=== PATIENT | female | born 1975 | race Caucasian/White ===

== ENCOUNTER 2018-06-13 08:44 | Emergency (ER) | payer OTHER ==
[2018-06-13 08:52] VITALS: BP 151/96; PULSE 70; TEMP 98.6; BMI 34.0
--- NOTE | 2018-06-13 09:12 | PDOC ---
History of Present Illness - General Chief Complaint: Eye Problem Stated Complaint: EYE PROLEM Time Seen by Provider: 06/13/18 08:59 History Source: Patient Exam Limitations: No Limitations - History of Present Illness Initial Comments: 06/13/18 09:14 Patient came for evaluation of redness to right eye. States 3 days ago was sneezing and had vomiting and had acute onset of redness. Denies visual changes , denies pain, denies any drainage or discharge from eye. Timing/Duration: unsure Severity: mild Associated Symptoms: reports: denies symptoms Past History - Travel Traveled outside of the country in the last 30 days: No Close contact w/someone who was outside of country & ill: No - Past Medical History Allergies/Adverse Reactions: Allergies Allergy/AdvReac Type Severity Reaction Status Date / Time No Known Allergies Allergy Verified 06/13/18 08:48 Home Medications: Ambulatory Orders NK [No Known Home Medication] 06/13/18 COPD: No - Immunization History Immunization Up to Date: Yes - Suicide/Smoking/Psychosocial Hx Smoking History: Never smoked Hx Alcohol Use: No Drug/Substance Use Hx: No Review of Systems - Review of Systems Able to Perform ROS?: Yes Is the patient limited Citizen [place] proficient: Yes Constitutional: Yes: Symptoms Reported, See HPI, Malaise. No: Fever HEENTM: Yes: See HPI. No: Symptoms Reported, Eye Pain, Blurred Vision, Tearing , Recent change in vision, Double Vision Respiratory: Yes: See HPI. No: Symptoms reported Musculoskeletal: No: Symptoms Reported All Other Systems: Reviewed and Negative *Physical Exam - Vital Signs Last Vital Signs Temp Pulse Resp BP Pulse Ox 98.6 F 70 15 151/96 99 06/13/18 08:48 06/13/18 08:48 06/13/18 08:48 06/13/18 08:48 06/13/18 08:48 - Physical Exam General Appearance: Yes: Appropriately Dressed, Apparent Distress HEENT: positive: ROSA MARIA, Normal ENT Inspection, TMs Normal, Pharynx Normal, Other (patient with 50% some conjunctival hemorrhage in the lateral aspect of her right eye, no hyphema, no corneal abrasion, no visual changes, vessel affected probable lateral aspect of mid cornea) Neck: negative: Tender Respiratory/Chest: positive: Lungs Clear, Normal Breath Sounds Integumentary: positive: Normal Color, Dry, Warm Neurologic: positive: merchant patroller II-XII NML intact, Fully Oriented, Alert, Normal Mood/ Affect, Normal Response, Motor Strength 5/5 Moderate Sedation - Procedure Monitoring Vital Signs: Procedure Monitoring Vital Signs Temperature 98.6 F 06/13/18 08:48 Pulse Rate 70 06/13/18 08:48 Respiratory Rate 15 06/13/18 08:48 Blood Pressure 151/96 06/13/18 08:48 O2 Sat by Pulse Oximetry (%) 99 06/13/18 08:48 *DC/Admit/Observation/Transfer Diagnosis at time of Disposition: Subconjunctival hemorrhage of right eye - Discharge Dispostion Disposition: HOME Condition at time of disposition: Stable Decision to Admit order: No - Referrals Referrals: Nohemi Rosales MD [Primary Care Provider] - - Patient Instructions Printed Discharge Instructions: DI for Subconjunctival Hemorrhage Additional Instructions: Rest, Avoid heavy lifting or strenous activity for 2 -3 days No creams or medications necessary - Post Discharge Activity Forms/Work/School Notes: Back to Work
== END 2018-06-13 09:24 | disposition home or self-care (01) ==
LOC: JERFT 08:44
DX: H11.31 Conjunctival hemorrhage, right eye (principal)
CPT/HCPCS: 99281-25